=== PATIENT | female | born 1960 | race Caucasian/White ===

== ENCOUNTER 2019-04-20 08:32 | Outpatient (CLI) | payer MEDICARE, MEDICAID ==
[~2019-04-20 08:32] MED LIST: ADV50500 IH; ALBU1.256 IH; CEPH-357 PO; LEVA15HF4 IH; LISI-600 PO; PRED20TA PO; VERA240C2 PO
== END 2019-04-20 23:59 | disposition home or self-care (01) ==
LOC: RAD 08:32
PROVIDERS: ATTEND Family Medicine
DX: G40.909 Epilepsy, unspecified, not intractable, without status epilepticus (principal)
CPT/HCPCS: 95816

== ENCOUNTER 2019-09-02 12:53 | Emergency (ER) | payer MEDICARE, MEDICAID ==
[~2019-09-02] VITALS: Ht 172.7 cm; Wt 78.8 kg
[2019-09-02 13:25] VITALS: BP 117/80
--- NOTE | 2019-09-02 14:30 | NUR ---
While patient was getting her labs drawn in bed 18 patient stated that she was unable to wait out in the lobby "with all those people any longer". Dr. Barajas was notified regarding this and went to see patient in bed 18. Patient was evaluated by Dr. Barajas and reported that she still wanted to leave. That she was just here because of her significant other. Patient signed AMA form and departed ER with a steady gait.
[2019-09-02 14:48] LABS: BASOPHILS # (AUTO) 0.1 X10'3 (0-0.2); BASOPHILS % (AUTO) 1.1 % (0-1); EOSINOPHILS # (AUTO) 0.2 X10'3 (0-0.9); EOSINOPHILS % (AUTO) 2.7 % (0-6); HEMATOCRIT 42.8 % (35.0-45.0); HEMOGLOBIN 14.5 g/dl (12.0-16.0); LYMPHOCYTES # (AUTO) 1.6 X10'3 (1.1-4.8); LYMPHOCYTES % (AUTO) 22.8 % (21-51); MEAN CORPUSCULAR HEMOGLOBIN 31.3 PG (27.0-31.0); MEAN CORPUSCULAR HGB CONC 33.9 g/dL (33.0-36.5); MEAN CORPUSCULAR VOLUME 92.1 FL (78-98); MEAN PLATELET VOLUME 7.7 FL (7.4-10.4); MONOCYTES # (AUTO) 0.5 X10'3 (0-0.9); MONOCYTES % (AUTO) 6.5 % (2-12); NEUTROPHILS # (AUTO) 4.7 X10'3 (1.8-7.7); NEUTROPHILS % (AUTO) 66.9 % (42-75); PLATELET COUNT 366 X10'3 (140-440); RED BLOOD COUNT 4.64 X10'6 (4.20-5.60); RED CELL DISTRIBUTION WIDTH 13.1 % (11.5-14.5); WHITE BLOOD COUNT 7.1 X10'3 (4.5-11.0)
[2019-09-02 14:59] LABS: ALANINE AMINOTRANSFERASE 18 U/L (12-78); ALBUMIN/GLOBULIN RATIO 1.1 (1.1-1.5); ALKALINE PHOSPHATASE 82 IU/L (46-116); ANION GAP 9 (8-16); ASPARTATE AMINO TRANSFERASE 15 U/L (10-37); BILIRUBIN,TOTAL 0.6 MG/DL (0.1-1.0); BLOOD UREA NITROGEN 12 MG/DL (7-18); BUN/CREATININE RATIO 12.6 (6.6-38.0); CHLORIDE 104 MMOL/L (99-107); CREATININE 0.95 MG/DL (0.40-0.90); GLUCOSE 99 MG/DL (70-104); POTASSIUM 4.2 MMOL/L (3.5-5.1); SODIUM 138 MMOL/L (135-145); TOTAL CARBON DIOXIDE 25.4 MMOL/L (24-32); TOTAL PROTEIN 7.5 G/DL (6.4-8.2); eGFR 60 ML/MIN
[2019-09-02 15:05] LABS: MAGNESIUM 2.1 MG/DL (1.5-2.4)
== END 2019-09-02 14:40 | disposition left against medical advice (07) ==
LOC: ER 12:54
DX: R55 Syncope and collapse (principal); R07.9 Chest pain, unspecified; R53.1 Weakness; R42 Dizziness and giddiness; I25.10 Atherosclerotic heart disease of native coronary artery without angina pectoris; I10 Essential (primary) hypertension; J45.909 Unspecified asthma, uncomplicated; Z72.89 Other problems related to lifestyle; Z79.2 Long term (current) use of antibiotics; Z79.899 Other long term (current) drug therapy
CPT/HCPCS: 36415; 80053; 83735; 83880; 84484; 85025; 93005; 99284

== ENCOUNTER 2024-03-30 10:40 | Outpatient (CLI) | payer MEDICARE, MEDICAID ==
[~2024-03-30 10:40] MED LIST changes: -LISI-600 PO; +LISI20TA28 PO
== END 2024-03-30 23:59 | disposition home or self-care (01) ==
LOC: RAD 10:40
PROVIDERS: ATTEND Family Medicine
DX: J44.1 Chronic obstructive pulmonary disease with (acute) exacerbation (principal)
CPT/HCPCS: 71046